=== PATIENT | female | born 1990 | race American Indian/Alaskan Native ===

== ENCOUNTER 2018-08-27 09:48 | Emergency (ER) | payer MEDICAID ==
[2018-08-27] MEDS ORDERED: NACL 0.9% 1000 ML 1,000 ML IV ONE (10:46)
--- NOTE | 2018-08-27 10:48 | Emergency Department Report ---
ED Fall HPI - General Chief Complaint: Fall Stated Complaint: FELL DOWN STAIRS Time Seen by Provider: 08/27/18 10:45 Source: patient Mode of arrival: Ambulatory Limitations: No Limitations - History of Present Illness Initial Comments: Patient is a 27-year-old female that presents emergency room with syncopal episode and fall. Patient states she was walking in her kitchen and became dizzy and flushed feeling and passed out and then fell down 12 steps. Patient states she hit her head and her right face. Patient states she was ambulatory and went back to bed. Patient states this happened at 5 AM this morning. Patient is complaining of loss of consciousness, headache, neck pain, right face pain, right side of her body pain. Patient states that her pain is at a 8 out of 10. Patient states her pain is better with rest and worse with movement. Patient states she was ambulatory immediately after and came here private vehicle. Patient states she believes her loss of consciousness was for seconds. Patient denies chest pain or shortness of breath. Patient denies fever or chills. MD Complaint: fall -: Sudden Fall From: standing, down stairs (#) (12) When Fall Occurred: 4-6 hours [employer] Fall Witnessed: no Place Fall Occurred: home Loss of Consciousness: yes, second(s) Prolonged Down Time?: no Symptoms Prior to Fall: lightheadedness, dizziness, other (syncope) Location: head, face, neck Severity: severe Severity scale (0 -10): 10 Quality: sharp Context: other Associated Symptoms: headache, neck pain, lightheaded. denies: numbness, weakness, chest paint, shortness of breath, abdominal pain, hematuria, unable to walk, vertigo, confusion - Related Data Previous Rx's Medication Instructions Recorded Last Taken Type Metaxalone [Skelaxin] 800 mg PO TID PRN #12 tablet 08/27/18 Unknown Rx Allergies Allergy/AdvReac Type Severity Reaction Status Date / Time No Known Allergies Allergy Unverified 04/02/18 19:28 ED Review of Systems ROS: Stated complaint: FELL DOWN STAIRS Other details as noted in HPI Constitutional: denies: chills, fever Eyes: denies: eye pain, eye discharge, vision change ENT: denies: ear pain, throat pain Respiratory: denies: cough, shortness of breath, wheezing Cardiovascular: denies: chest pain, palpitations Endocrine: no symptoms reported Gastrointestinal: denies: abdominal pain, nausea, diarrhea Genitourinary: denies: urgency, dysuria, discharge Musculoskeletal: denies: back pain, joint swelling, arthralgia Skin: denies: rash, lesions Neurological: headache. denies: weakness, paresthesias Psychiatric: denies: anxiety, depression Hematological/Lymphatic: denies: easy bleeding, easy bruising ED Past Medical Hx - Past Medical History Previous Medical History?: Yes Hx Asthma: Yes Additional medical history: Crohn's Disease. Obesity. - Surgical History Past Surgical History?: No - Family History Family history: no significant - Social History Smoking Status: Never Smoker Substance Use Type: None - Medications Home Medications: Home Medications Medication Instructions Recorded Confirmed Last Taken Type Metaxalone [Skelaxin] 800 mg PO TID PRN #12 tablet 08/27/18 Unknown Rx ED Physical Exam - General Limitations: No Limitations General appearance: alert, in no apparent distress - Head Head exam: Present: atraumatic, normocephalic - Eye Eye exam: Present: normal appearance, PERRL Pupils: Present: normal accommodation - ENT ENT exam: Present: mucous membranes moist - Neck Neck exam: Present: normal inspection, tenderness. Absent: full ROM - Respiratory Respiratory exam: Present: normal lung sounds bilaterally. Absent: respiratory distress - Cardiovascular Cardiovascular Exam: Present: regular rate, normal rhythm. Absent: systolic murmur, diastolic murmur, rubs, gallop - GI/Abdominal GI/Abdominal exam: Present: soft, normal bowel sounds. Absent: distended, tenderness, guarding, rebound - Extremities Exam Extremities exam: Present: normal inspection, full ROM. Absent: tenderness - Back Exam Back exam: Present: normal inspection - Neurological Exam Neurological exam: Present: alert, oriented X3 - Psychiatric Psychiatric exam: Present: normal affect, normal mood - Skin Skin exam: Present: warm, dry, intact, normal color. Absent: rash ED Course Vital Signs 08/27/18 08/27/18 10:00 12:39 Temperature 97.9 F Pulse Rate 69 55 L Respiratory 18 18 Rate Blood Pressure 114/79 Blood Pressure 105/71 [Left] O2 Sat by Pulse 97 100 Oximetry - Reevaluation(s) Reevaluation #1: And all results with patient. Patient given discharge instructions. Patient stable for discharge. Patient was understanding of all instructions. Patient states her pain has resolved. 08/27/18 14:01 ED Medical Decision Making - Lab Data Result diagrams: 08/27/18 10:59 08/27/18 10:59 - EKG Data -: EKG Interpreted by Me EKG shows normal: sinus rhythm, axis, intervals, QRS complexes, ST-T waves Rate: bradycardia - EKG Data When compared to previous EKG there are: no significant change - Radiology Data Radiology results: report reviewed CT HEAD WITHOUT CONTRAST INDICATION: Syncope causing fall/trauma. COMPARISON: 04/02/2018. FINDINGS: Noncontrast head CT demonstrates normal ventricles and sulci without acute or recent infarct, hemorrhage, mass effect or midline shift. No abnormal extra-axial fluid collections. Posterior fossa structures and basilar cisterns within normal limits. Symmetric eye globes. Slight nasal septal bowing. Hypoplastic/aplastic frontal sinuses bilaterally. Clear remainder aerated paranasal sinuses and mastoid air cells. Intact calvarium. Normal overlying scalp soft tissues. Few radiopaque dental material incidentally noted. Partially empty sella not excluded. CONCLUSION: No acute intracranial CT abnormality with few other findings, as described. CT CERVICAL SPINE WITHOUT CONTRAST INDICATION: Fall causing neck pain. COMPARISON: None similar. FINDINGS: Noncontrast axial, sagittal and coronal CT reconstructions of the cervical spine demonstrate normal visualized intracranial appearance. Assessment of the spinal canal from C5 inferiorly compromised due to artifact from shoulder soft tissues. Streak artifact from radiopaque dental material as well. Clear included mastoid air cells. Symmetric occipital condyles. Normal anterior and posterior arches of C1. Intact craniocervical articulation with normal predental space, prevertebral soft tissues, vertebral body stature, disc heights and posterior elements. Straightening noted, possibly positional versus spasm. No large disc protrusion at any level suspected. Normal included thyroid. Clear visualized lung apices. CONCLUSION: Cervical spine straightening without acute fracture, as above. Please correlate. CT FACIAL BONES WITHOUT CONTRAST: INDICATION: Facial pain. COMPARISON: None similar. FINDINGS: Noncontrast axial, sagittal and coronal CT reconstructions through the face demonstrate normal intracranial appearance. Symmetric eye globes with normal retrobulbar fat. Intact facial bones. Streak artifact from multiple radiopaque dental material noted. Normal airway. Slight rightward nasal septal bowing possible. Patent osteomeatal complexes bilaterally. Hypoplastic/aplastic bilateral frontal sinuses. Clear remainder imaged paranasal sinuses. Normal TMJs. CONCLUSION: No acute facial fractures with few other incidental findings, as above. - Medical Decision Making Patient is a 27-year-old female that presents emergency room with a syncopal episode and a fall down steps. Patient initial complaints were syncope, neck pain, facial pain, headache. Patient had multiple scans and all were negative. Labs unremarkable. Patient will be discharged home patient is stable for discharge. Patient given discharge instructions. Patient was understanding of all structures. - Differential Diagnosis fall. Syncope. Neck pain.. Neck fracture. Headache. Critical care attestation.: If time is entered above; I have spent that time in minutes in the direct care of this critically ill patient, excluding procedure time. ED Disposition Clinical Impression: Neck pain, Face pain, Fall (on) (from) other stairs and steps, initial encounter Syncope Qualifiers: Syncope type: unspecified Qualified Code(s): R55 - Syncope and collapse Fall Qualifiers: Encounter type: initial encounter Qualified Code(s): W19.XXXA - Unspecified fall, initial encounter Acute neck sprain Qualifiers: Encounter type: initial encounter Qualified Code(s): S13.9XXA - Sprain of joints and ligaments of unspecified parts of neck, initial encounter Disposition: DC- TO HOME OR SELFCARE Is pt being admited?: No Does the pt Need Aspirin: No Condition: Stable Instructions: Cervical Spine Strain (ED), Syncope (ED), Cervical Sprain (ED), Muscle Spasm (ED) Additional Instructions: Patient follow up with primary care in 2-3 days. Patient to return to ER if condition worsens. Patient to follow up with orthopedist in 2-3 days. Patient to increase water. Patient take Tylenol or ibuprofen when necessary for pain. Patient to take meds as directed. Patient to increase water. Patient to rest. Prescriptions: Metaxalone [Skelaxin] 800 mg PO TID PRN #12 tablet PRN Reason: Spasms Referrals: ZULEYMA BURROUGHS MD [Primary Care Provider] - 2-3 Days FLOWER STANTON MD [Staff Physician] - 2-3 Days Forms: Work/School Release Form(ED) Time of Disposition: 14:08
--- NOTE | 2018-08-27 11:09 | Cat Scan Report ---
CT HEAD WITHOUT CONTRAST INDICATION: Syncope causing fall/trauma. COMPARISON: 04/02/2018. FINDINGS: Noncontrast head CT demonstrates normal ventricles and sulci without acute or recent infarct, hemorrhage, mass effect or midline shift. No abnormal extra-axial fluid collections. Posterior fossa structures and basilar cisterns within normal limits. Symmetric eye globes. Slight nasal septal bowing. Hypoplastic/aplastic frontal sinuses bilaterally. Clear remainder aerated paranasal sinuses and mastoid air cells. Intact calvarium. Normal overlying scalp soft tissues. Few radiopaque dental material incidentally noted. Partially empty sella not excluded. CONCLUSION: No acute intracranial CT abnormality with few other findings, as described. Thank you for the opportunity to participate in this patient's care.
--- NOTE | 2018-08-27 11:11 | Cat Scan Report ---
CT CERVICAL SPINE WITHOUT CONTRAST INDICATION: Fall causing neck pain. COMPARISON: None similar. FINDINGS: Noncontrast axial, sagittal and coronal CT reconstructions of the cervical spine demonstrate normal visualized intracranial appearance. Assessment of the spinal canal from C5 inferiorly compromised due to artifact from shoulder soft tissues. Streak artifact from radiopaque dental material as well. Clear included mastoid air cells. Symmetric occipital condyles. Normal anterior and posterior arches of C1. Intact craniocervical articulation with normal predental space, prevertebral soft tissues, vertebral body stature, disc heights and posterior elements. Straightening noted, possibly positional versus spasm. No large disc protrusion at any level suspected. Normal included thyroid. Clear visualized lung apices. CONCLUSION: Cervical spine straightening without acute fracture, as above. Please correlate. Thank you for the opportunity to participate in this patient's care.
[2018-08-27 11:25] LABS: Basophils # (Auto) 0.1 K/mm3 (0.0-0.1); Eosinophils % (Auto) 0.1 % (0.0-4.3); Hematocrit 40.7 % (30.3-42.9); Hemoglobin 13.7 gm/dl (10.1-14.3); Lymphocytes % (Auto) 24.1 % (13.4-35.0); Mean Corpuscular HGB Conc 34 % (30-34); Mean Corpuscular Volume 81 fl (79-97); Monocytes # (Auto) 0.6 K/mm3 (0.0-0.8); Monocytes % (Auto) 7.6 % (0.0-7.3); Platelet Count 306 K/mm3 (140-440); Red Blood Count 5.03 M/mm3 (3.65-5.03); Red Cell Distribution Width 13.7 % (13.2-15.2)
[2018-08-27 11:56] LABS: Creatine Kinase MB 1.2 ng/mL (0.0-4.0)
[2018-08-27 11:58] LABS: Alanine Aminotransferase 27 units/L (7-56); BUN/Creatinine Ratio 15; Blood Urea Nitrogen 9 mg/dL (7-17); Calcium 8.7 mg/dL (8.4-10.2); Hemolysis Index 10
--- NOTE | 2018-08-27 13:47 | Cat Scan Report ---
CT FACIAL BONES WITHOUT CONTRAST: INDICATION: Facial pain. COMPARISON: None similar. FINDINGS: Noncontrast axial, sagittal and coronal CT reconstructions through the face demonstrate normal intracranial appearance. Symmetric eye globes with normal retrobulbar fat. Intact facial bones. Streak artifact from multiple radiopaque dental material noted. Normal airway. Slight rightward nasal septal bowing possible. Patent osteomeatal complexes bilaterally. Hypoplastic/aplastic bilateral frontal sinuses. Clear remainder imaged paranasal sinuses. Normal TMJs. CONCLUSION: No acute facial fractures with few other incidental findings, as above. Thank you for the opportunity to participate in this patient's care.
[2018-08-29 11:48] VITALS: BP 105/71
== END 2018-08-27 14:18 | disposition home or self-care (01) ==
LOC: ED 09:48
DX: S13.9XXA Sprain of joints and ligaments of unspecified parts of neck, initial encounter (principal); S09.90XA Unspecified injury of head, initial encounter; R55 Syncope and collapse; J45.909 Unspecified asthma, uncomplicated; W10.9XXA Fall (on) (from) unspecified stairs and steps, initial encounter; Y93.89 Activity, other specified; Y92.89 Other specified places as the place of occurrence of the external cause; Y99.8 Other external cause status
CPT/HCPCS: 36415; 70450; 70486; 72125; 80053; 82550; 82553; 84484; 84703; 85025; 85379; 93005; 93010; 96360; 99284; J7030

== ENCOUNTER 2018-11-23 07:49 | Emergency (ER) | payer MEDICAID ==
--- NOTE | 2018-11-23 09:11 | Ultrasound Report ---
ULTRASOUND ABDOMEN COMPLETE: TECHNIQUE: Transabdominal ultrasound with color Doppler interrogation. HISTORY: Abdominal pain, nausea. COMPARISON: none. FINDINGS: LIVER: Normal. BILIARY SYSTEM: Normal. PANCREAS: Normal. SPLEEN: Normal. KIDNEYS: Normal. AORTA/IVC: Normal. ASCITES: None. IMPRESSION: Unremarkable exam.
[2018-11-23 09:13] LABS: HCG Qualitative,Urine Negative (Negative)
--- NOTE | 2018-11-23 09:21 | Emergency Department Report ---
ED Abdominal Pain HPI - General Chief Complaint: Abdominal Pain Stated Complaint: STOMACH PAIN/HEADACHE Time Seen by Provider: 11/23/18 08:28 Source: patient Mode of arrival: Ambulatory Limitations: No Limitations - History of Present Illness Initial Comments: This is a 28-year-old female presents to easy complaining of epigastric abdominal discomfort and nausea times a week. Patient states that she was diagnosed with Crohn's disease about 2-3 years ago. Patient states that she is not taking her medication and has not been taking it for a while now. Patient states she has not had a flareup so she didn't think anything about it. Patient denies any fever, vomiting, diarrhea or radiating pain, chest pain, shortness of breath. She states that since her period was 11/04/2018. Complaint: abdominal pain Location: periumbilical, epigastric Severity scale (0 -10): 8 - Related Data Previous Rx's Medication Instructions Recorded Last Taken Type Metaxalone [Skelaxin] 800 mg PO TID PRN #12 tablet 08/27/18 Unknown Rx Dicyclomine [Bentyl] 10 mg PO BID #20 capsule 11/23/18 Unknown Rx Ondansetron [Zofran ODT TAB] 8 mg PO Q12HR #20 tab.rapdis 11/23/18 Unknown Rx Allergies Allergy/AdvReac Type Severity Reaction Status Date / Time No Known Allergies Allergy Unverified 04/02/18 19:28 ED Review of Systems ROS: Stated complaint: STOMACH PAIN/HEADACHE Other details as noted in HPI Comment: All other systems reviewed and negative ED Past Medical Hx - Past Medical History Hx Asthma: Yes Additional medical history: Crohn's Disease. Obesity. - Social History Smoking Status: Current Every Day Smoker Substance Use Type: Marijuana - Medications Home Medications: Home Medications Medication Instructions Recorded Confirmed Last Taken Type Metaxalone [Skelaxin] 800 mg PO TID PRN #12 tablet 08/27/18 Unknown Rx Dicyclomine [Bentyl] 10 mg PO BID #20 capsule 11/23/18 Unknown Rx Ondansetron [Zofran ODT TAB] 8 mg PO Q12HR #20 tab.rapdis 11/23/18 Unknown Rx ED Physical Exam - General Limitations: No Limitations General appearance: alert, in no apparent distress - Head Head exam: Present: atraumatic, normocephalic - Eye Eye exam: Present: normal appearance - ENT ENT exam: Present: mucous membranes moist - Neck Neck exam: Present: normal inspection - Respiratory Respiratory exam: Present: normal lung sounds bilaterally. Absent: respiratory distress - Cardiovascular Cardiovascular Exam: Present: regular rate, normal rhythm. Absent: systolic murmur, diastolic murmur, rubs, gallop - GI/Abdominal GI/Abdominal exam: Present: soft, normal bowel sounds. Absent: distended, tenderness, guarding, rebound, mass - Extremities Exam Extremities exam: Present: normal inspection - Back Exam Back exam: Present: normal inspection - Neurological Exam Neurological exam: Present: alert, oriented X3 - Psychiatric Psychiatric exam: Present: normal affect, normal mood - Skin Skin exam: Present: warm, dry, intact, normal color. Absent: rash ED Course Vital Signs 11/23/18 08:04 Temperature 98.5 F Pulse Rate 55 L Respiratory 18 Rate Blood Pressure 120/77 [Right] O2 Sat by Pulse 99 Oximetry ED Medical Decision Making - Radiology Data Radiology results: report reviewed, image reviewed FINDINGS: LIVER: Normal. BILIARY SYSTEM: Normal. PANCREAS: Normal. SPLEEN: Normal. KIDNEYS: Normal. AORTA/IVC: Normal. ASCITES: None. IMPRESSION: Unremarkable exam. Transcribed By: TTR Dictated By: BALBINA ESCALANTE JR, MD Electronically Authenticated By: BALBINA ESCALANTE JR, MD Signed Date/Time: 11/23/18 0906 - Medical Decision Making 28-year-old female with a history of Crohn's disease presents with abdominal pain with nausea. No vomiting the ED Ultrasound of abdomen was negative Urinalysis and urine test negative Discussed all findings with the patient. Discussed patient in follow-up with her GI doctor. Discussed this is possibly Crohn's flareup. Discussed continue taking her medication as needed. Zofran given for nausea. Vital signs are normal patient is in no acute distress. Critical care attestation.: If time is entered above; I have spent that time in minutes in the direct care of this critically ill patient, excluding procedure time. ED Disposition Clinical Impression: Abdominal pain, Nausea Disposition: DC-01 TO HOME OR SELFCARE Is pt being admited?: No Does the pt Need Aspirin: No Condition: Stable Instructions: Abdominal Pain (ED), Crohn Disease (ED) Additional Instructions: Make sure to follow up with the primary care physician as discussed. Take all your medications as you've been prescribed. If you have any worsening symptoms or develop new symptoms please return to ED immediately. Prescriptions: Dicyclomine [Bentyl] 10 mg PO BID #20 capsule Ondansetron [Zofran ODT TAB] 8 mg PO Q12HR #20 tab.rapdis Referrals: МАРИЯ DOS SANTOS MD [Primary Care Provider] - 3-5 Days [facility] [Provider Group] - 3-5 Days Forms: Accompanied Note, Work/School Release Form(ED) Time of Disposition: 09:32
[2018-11-23 09:24] LABS: Bacteria,Urine 1+ /HPF (Negative); Bilirubin,Urine NEG (Negative); Blood,Urine NEG (Negative); Calcium Oxalate Crystals,Urine 2+; Color,Urine Yellow (Yellow); Mucus,Urine 3+ /HPF; Protein,Urine <15 mg/dL mg/dL (Negative)
[2018-11-23 10:28] VITALS: BP 118/74
== END 2018-11-23 10:27 | disposition home or self-care (01) ==
LOC: ED 07:49
DX: R10.13 Epigastric pain (principal); R11.0 Nausea; J45.909 Unspecified asthma, uncomplicated; F17.200 Nicotine dependence, unspecified, uncomplicated; F12.90 Cannabis use, unspecified, uncomplicated
CPT/HCPCS: 76700; 81001; 81025; 99284

== ENCOUNTER 2019-08-27 20:55 | Emergency (ER) | payer MEDICAID ==
[2019-08-27 21:29] VITALS: BP 140/84
--- NOTE | 2019-08-27 21:54 | Emergency Department Report ---
Chief Complaint: Earache Stated Complaint: RIGHT EAR PAIN Time Seen by Provider: 08/27/19 21:53 - HPI History of Present Illness: Ms. Black is a 28-year-old female with history of Crohn's disease who has 2 days of right ear pain. She has a mild ache. She hears her voice in her ear. No trauma. She does use Q-tips. She recently recovered from a cold. No previous history of ear infection. - Exam Vital Signs: Vital Signs 08/27/19 21:00 Temperature 99.4 F Pulse Rate 97 H Respiratory 18 Rate Blood Pressure 140/84 O2 Sat by Pulse 97 Oximetry Physical Exam: HEENT normocephalic atraumatic pupils equal round reactive to light tympanic membranes within normal limits without effusion normal oropharynx without lesions or exudate Neck supple no meningismus Chest clear to auscultaton bilaterally Patient appears well Normal gait MSE screening note: Focused history and physical exam performed. Due to findings the following was ordered: ED Medical Decision Making - Medical Decision Making Medical screening exam performed and completed. No evidence of perforation or otitis media. Discharged home ED Disposition for MSE Clinical Impression: Encounter for medical screening examination Disposition: Z-07 MED SCREENING EXAM-LEFT Is pt being admited?: No Does the pt Need Aspirin: No Condition: Stable Referrals: PRIMARY CARE, [Primary Care Provider] - 3-5 Days Forms: Work/School Release Form(ED)
== END 2019-08-27 23:37 | disposition left against medical advice (07) ==
LOC: ED 20:55
DX: Z00.00 Encounter for general adult medical examination without abnormal findings (principal)
CPT/HCPCS: 99282